=== PATIENT | female | born 1975 | race Asian ===

== ENCOUNTER 2017-07-05 14:57 | Emergency (ER) | payer BC ==
[2017-07-05] MEDS: NS 0.9% 1000 ML* 2,000 ML IV ONE (16:05)
[2017-07-05 16:20] LABS: ABS Basophils 0.1 10^3/ul (0-0.2); ABS Eosinophils 0.1 10^3/ul (0-0.6); ABS Monocytes 0.8 10^3/ul (0-0.8); ABS Neutrophils 6.3 10^3/ul (1.5-7.7); ABS Nucleated RBC 0 10^3/ul; Eosinophil % 1.2 % (0-6); Hematocrit 32 % (35-47); Lymphocyte % 21.1 % (25-47); Mean Corpuscular HGB Conc 35 g/dl (31-36); Mean Corpuscular Hemoglobin 29 pg (27-31); Mean Corpuscular Volume 84 fL (80-97); Mean Platelet Volume 8 um3 (7.4-10.4); Nucleated Red Blood Cells % 0; Platelet Count 267 10^3/ul (150-450); Red Blood Count 3.79 10^6/ul (4.0-5.4); Red Cell Distribution Width 13 % (10.5-15); White Blood Count 9.2 10^3/ul (3.5-10.8)
[2017-07-05 16:30] LABS: INR 0.93 (0.77-1.02)
[2017-07-05 16:37] LABS: EGFR Non-African American 92.7 (>60)
[2017-07-05] MEDS ORDERED: Morphine INJ* 4 MG/ML 1 ML SYRINGE (NEW SYRINGE VERSION) IV ONE (17:26)
[2017-07-05] MEDS ORDERED: Ondansetron INJ* 2 MG/ML VIAL IV ONE (17:36)
[2017-07-05] MEDS ORDERED: Ondansetron INJ* 2 MG/ML VIAL ONE (17:37)
--- NOTE | 2017-07-05 18:47 | RAD ---
INDICATION: Early with bleeding. Follow-up to July 03, 2017 examination COMPARISON: July 03, 2017 TECHNIQUE: Transvaginal scans were performed for the purposes of early evaluation. FINDINGS: There is no intrauterine gestational sac/ pole. There is echogenic material within the cervix likely representing blood. These findings must be correlated with the clinical presentation and with the serial beta hCG value. There is no adnexal mass. Left ovary is not visualized. Right ovary measures 4.0 x 3.3 x 3.5 cm.. There is a complex 3.2 cm right ovarian cyst. There is no significant free fluid. IMPRESSION: NO INTRAUTERINE GESTATION IS IDENTIFIED. BLOOD PRODUCTS ARE SEEN IN THE CERVIX.
--- NOTE | 2017-07-05 21:15 | RAD ---
INDICATION: Evacuation of blood products near cervix. Evaluate for additional retained products of conception COMPARISON: Ultrasound July 05, 2017 TECHNIQUE: Longitudinal and transverse transabdominal scans of the pelvis were obtained. FINDINGS: Limited ultrasonographic evaluation post evacuation of blood products shows a complex and thickened endometrial complex consistent with retained products and/or blood. The endometrium measures 2.3 cm. The larger echogenic collection in the lower uterine segment and cervix has been evacuated. There is now a small amount of fluid in the cervix IMPRESSION: There is blood and there may be retained products within the endometrial cavity which appears mildly thickened. Following evacuation, the larger echogenic collection in the lower uterine segment and cervix is no longer present.
[2017-07-05 21:41] LABS: Urine Appearance Cloudy; Urine Blood 3+ (Negative); Urine Ketones Negative (Negative); Urine Protein 1+(30 mg/dL) (Negative); Urine Specific Gravity 1.008 (1.010-1.030); Urine Urobilinogen Negative (Negative)
[2017-07-05 21:42] LABS: Urine Color Red
--- NOTE | 2017-07-05 23:06 | ED ---
Bubba Mae Natalie, scribed for Rosie Jerez MD on 07/05/17 at 1725 . - HPI Summary HPI Summary: The patient is a 41 y/o F AB1 presenting to the ED c/o bleeding and suprapubic abd pain worsening last night. She is 9 weeks by date of her LMP. She had transvaginal US on 07/03/17 at [facility] [place] ordered by Monroe WHIPPER, after the first office visit she had with them for this . The embryo looked like it had stopped growing after 6 weeks. Due to results, she was scheduled to have an appointment on 07/06/17. She started spotting after the US, and the pain started last night with heavier bleeding (about 2 pads per hour), worsening since then. She states that the clots are so big she has to go to the bathroom. She felt lightheaded and had severe cramping with back pain. The pain is rated 5/10. She has had one miscarriage before in which she had to have an emergency D&C. She also has one child now, who was a delivery.She has FHx of diabetes and HTN. - History of Current Complaint Chief Complaint: EDVaginalBleeding Stated Complaint: POSSIBLE MISCARRIAGE Time Seen by Provider: 07/05/17 16:31 Hx Obtained From: Patient, Family/Standards Analyst - and 4 yo son are with pt in the ED Chief Complaint: Concern for Embryonic Dem, Vaginal Bleeding Onset/Duration: Started Days Ago - starting 07/03/17, Atraumatic, Still Present Timing: Constant Severity: Moderate Current Severity: Severe Pain Intensity: 5 Location of Pain: Suprapubic Character: Cramping Aggravating Factors: Nothing Alleviating Factors: Nothing Associated Signs and Symptoms: Positive: Back Pain, Vaginal Bleeding or Discharge, Other: - lightheaded - Assessment Hx Now: Yes History of Ectopic : No Vaginal Bleeding Amount: Copious Hx Hysterectomy: No - Allergies/Home Medications Allergies/Adverse Reactions: Allergies Allergy/AdvReac Type Severity Reaction Status Date / Time No Known Allergies Allergy Verified 07/05/17 15:03 PMH/Surg Hx/FS Hx/Imm Hx Previously Healthy: Yes Opthamlomology History: Denies: Hx Legally Blind EENT History: Denies: Hx Deafness - Surgical History Surgery Procedure, Year, and Place: D and C after spontaneous Ab Infectious Disease History: No Infectious Disease History: Denies: Traveled Outside the [place] in Last 30 Days - Family History Known Family History: Positive: Hypertension, Diabetes - Social History Lives: With Family Alcohol Use: None Substance Use Type: Reports: None Smoking Status (MU): Never Smoked Tobacco Review of Systems Constitutional: Negative Cardiovascular: Negative Respiratory: Negative Positive: Abdominal Pain - suprapubic Positive: other - vaginal bleeding with blood clots. Negative: dysuria Positive: Other - back pain Skin: Negative Neurological: Other - lightheadedness Psychological: Normal All Other Systems Reviewed And Are Negative: Yes Physical Exam - Summary Physical Exam Summary: Appearance: Ill-appearing, moderate to severe pain distress, Well-nourished Skin: Warm, color reflects adequate perfusion Head: Normal Head/Face inspection Eyes: Conjunctiva clear ENT: Normal inspection Neck: Supple, no nodes, no JVD. Respiratory: Lungs clear, Normal breath sounds, no respiratory distress Cardio: RRR, No murmur, pulses normal, brisk capillary refill Abdomen: soft, Diffuse lower abd pain, no guarding, no rebound Pelvic exam: copious blood in the vagina, Dr. Loco completes pelvic exam with removal of large amount of clots and tissue Bowel sounds: present Musculoskeletal: Strength Intact/ ROM intact. No calf tenderness. No edema. Neuro: Alert, muscle tone normal, facial symmetry, speech normal, sensory/motor intact Psychological: Normal - Physical Exam Triage Information Reviewed: Yes Vital Signs Reviewed: Yes Diagnostics - Vital Signs Vital Signs Temp Pulse Resp BP Pulse Ox 07/05/17 17:04 73 9 100 07/05/17 16:46 83 18 103/61 100 07/05/17 16:30 81 16 96/60 100 07/05/17 16:16 100 07/05/17 16:03 104/64 07/05/17 16:00 86 17 100 07/05/17 15:53 78 97 07/05/17 15:51 102/59 07/05/17 15:00 98.5 F 103 20 121/65 100 - Laboratory Lab Results: Lab Results 07/05/17 07/05/17 07/05/17 Range/Units 16:02 16:02 16:02 WBC (3.5-10.8) 10^3/ul RBC (4.0-5.4) 10^6/ul Hgb (12.0-16.0) g/dl Hct (35-47) % MCV (80-97) fL MCH (27-31) pg MCHC (31-36) g/dl RDW (10.5-15) % Plt Count (150-450) 10^3/ul MPV (7.4-10.4) um3 Neut % (Auto) (38-83) % Lymph % (Auto) (25-47) % [place] % (Auto) (0-7) % Eos % (Auto) (0-6) % Baso % (Auto) (0-2) % Absolute Neuts (auto) (1.5-7.7) 10^3/ul Absolute Lymphs (auto) (1.0-4.8) 10^3/ul Absolute Monos (auto) (0-0.8) 10^3/ul Absolute Eos (auto) (0-0.6) 10^3/ul Absolute Basos (auto) (0-0.2) 10^3/ul Absolute Nucleated RBC 10^3/ul Nucleated RBC % INR (Anticoag Therapy) 0.93 (0.77-1.02) APTT 30.4 (26.0-36.3) seconds Sodium 133 (133-145) mmol/L Potassium 4.2 (3.5-5.0) mmol/L Chloride 104 (101-111) mmol/L Carbon Dioxide 26 (22-32) mmol/L Anion Gap 3 (2-11) mmol/L BUN 12 (6-24) mg/dL Creatinine 0.70 (0.51-0.95) mg/dL Est GFR ( Amer) 119.2 (>60) Est GFR (Non-Af Amer) 92.7 (>60) BUN/Creatinine Ratio 17.1 (8-20) Glucose 99 (70-100) mg/dL Lactic Acid (0.5-2.0) mmol/L Calcium 8.7 (8.6-10.3) mg/dL Total Bilirubin 0.20 (0.2-1.0) mg/dL AST 22 (13-39) U/L ALT 23 (7-52) U/L Alkaline Phosphatase 44 (34-104) U/L C-Reactive Protein 3.33 (< 5.00) mg/L Total Protein 6.1 L (6.4-8.9) g/dL Albumin 3.5 (3.2-5.2) g/dL Globulin 2.6 (2-4) g/dL Albumin/Globulin Ratio 1.3 (1-3) Beta HCG, Quant 4130.00 mIU/mL Blood Type AB Positive Antibody Screen Negative 07/05/17 07/05/17 Range/Units 16:02 16:02 WBC 9.2 (3.5-10.8) 10^3/ul RBC 3.79 L (4.0-5.4) 10^6/ul Hgb 11.0 L (12.0-16.0) g/dl Hct 32 L (35-47) % MCV 84 (80-97) fL MCH 29 (27-31) pg MCHC 35 (31-36) g/dl RDW 13 (10.5-15) % Plt Count 267 (150-450) 10^3/ul MPV 8 (7.4-10.4) um3 Neut % (Auto) 68.3 (38-83) % Lymph % (Auto) 21.1 L (25-47) % [place] % (Auto) 8.3 H (0-7) % Eos % (Auto) 1.2 (0-6) % Baso % (Auto) 1.1 (0-2) % Absolute Neuts (auto) 6.3 (1.5-7.7) 10^3/ul Absolute Lymphs (auto) 2.0 (1.0-4.8) 10^3/ul Absolute Monos (auto) 0.8 (0-0.8) 10^3/ul Absolute Eos (auto) 0.1 (0-0.6) 10^3/ul Absolute Basos (auto) 0.1 (0-0.2) 10^3/ul Absolute Nucleated RBC 0 10^3/ul Nucleated RBC % 0 INR (Anticoag Therapy) (0.77-1.02) APTT (26.0-36.3) seconds Sodium (133-145) mmol/L Potassium (3.5-5.0) mmol/L Chloride (101-111) mmol/L Carbon Dioxide (22-32) mmol/L Anion Gap (2-11) mmol/L BUN (6-24) mg/dL Creatinine (0.51-0.95) mg/dL Est GFR ( Amer) (>60) Est GFR (Non-Af Amer) (>60) BUN/Creatinine Ratio (8-20) Glucose (70-100) mg/dL Lactic Acid 1.0 (0.5-2.0) mmol/L Calcium (8.6-10.3) mg/dL Total Bilirubin (0.2-1.0) mg/dL AST (13-39) U/L ALT (7-52) U/L Alkaline Phosphatase (34-104) U/L C-Reactive Protein (< 5.00) mg/L Total Protein (6.4-8.9) g/dL Albumin (3.2-5.2) g/dL Globulin (2-4) g/dL Albumin/Globulin Ratio (1-3) Beta HCG, Quant mIU/mL Blood Type Antibody Screen Result Diagrams: 07/05/17 16:02 07/05/17 16:02 Lab Statement: Any lab studies that have been ordered have been reviewed, and results considered in the medical decision making process. - Ultrasound No standard instances Ultrasound Interpretation: Positive (See Comments) - No intrauterine gestation is identified. Blood products are seen in the cervix. ED physician has reviewed this report. Ultrasound Interpretation Completed By: Radiologist Re-Evaluation - Re-Evaluation First Eval Re-Evaluation Time: 17:34 Change: Unchanged Comment: I told the patient that Dr. Loco recommends to get a US. She is agreeable with this plan. Second Eval Re-Evaluation Time: 19:30 Change: Unchanged Comment: Dr. 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 Large amount of clot and tissue removed from vagina and cervix. Specimen sent to lab for genetic testing at pt and 's request. Third Eval Re-Evaluation Time: 21:00 Change: Improved Comment: Bleeding has stopped and pt's pain is controlled after pelvic exam with removal of clot and tissue. Awaiting repeat ultrasound for evaluation for possible retained products of conception. Course/Dx - Course Course Of Treatment: In the ER, the patient was given Morphine, Zofran 2x, and NS IV. Dr. Loco recommends that the patient get a US. Luke from ultrasound reports that the US shows the gestational sac is moved half way out of the cervix. I will contact Dr. Loco regarding further care. Dr. Loco is in the ED, and will consult on the patient for definitive care. Dr. Loco removed clot and tissue from pt's cervix and vagina with myself in attendance. Pt tolerated the procedure well. , Qasim, and pt consent to genetic testing of the products of conception. [facility] form for informed consent for genetic testing signed, and specimen sent to lab for processing. I spoke with Betty in the lab at 2050pm, who received the specimen and states it is properly labeled and paperwork is completed properly for the specimen to be processed for genetic testing. 2049 Lujair from ultrasound is in the department to repeat images by ultrasound to evaluate for retained products of conception. Care to Dr. Loco and Dr. Newell at change of shift 2100, 07/05/17, pending re- evaluation after second ultrasound. - Differential Diagnosis/HQI/PQRI: Incomplete , Missed , Spontaneous , Threatened , /Embryonic Demise, Vaginal Bleeding - Diagnoses Provider Diagnoses: Incomplete miscarriage - Provider Notifications Discussed Care Of Patient With: Giancarlo Loco Time Discussed With Above Provider: 17:20 - I spoke with Dr. Loco, WHIPPER, who recommends that the patient gets an ultrasound. Instructed by Provider To: MD Will See In ED Discharge - Discharge Plan Condition: Stable Disposition: OTHER Discharge Disposition Comment: care to Dr. Newell 07/05/17, 2100 with repeat US results pending,& final dispo Referrals: [facility] [place] [facility] [Outside] Giancarlo Loco MD [Medical Doctor] - 07/07/17 Additional Instructions: RETURN TO EMERGENCY DEPARTMENT FOR ANY NEW OR WORSENING SYMPTOMS The documentation as recorded by the Bubba hurley Natalie accurately reflects the service I personally performed and the decisions made by me, Rosie Jerez MD.
[2017-07-05 23:16] VITALS: BP 120/75
--- NOTE | 2017-07-05 23:16 | ED ---
Aly Mae Gabriel, scribed for Shukri Newell MD on 07/05/17 at 2246 . Progress - Progress Note Progress Note: This patient was signed out from Dr. Jerez, pending disposition. The patients condition is stable and will be discharged to home. We discussed patient care with Dr. Loco and they recommended discharging the pt. Dx retained product of conception Pt will follow up with Dr. Loco Course/Dx - Diagnoses Provider Diagnoses: Retained products of conception The documentation as recorded by the Aly hurley Gabriel accurately reflects the service I personally performed and the decisions made by Reece jean baptiste Abdul, MD.
== END 2017-07-05 23:13 ==
LOC: ED 14:57
DX: O03.4 Incomplete spontaneous abortion without complication (principal); E11.9 Type 2 diabetes mellitus without complications; I10 Essential (primary) hypertension
CPT/HCPCS: 36415; 76801; 76857; 80053; 81003; 81015; 83605; 84702; 85025; 85610; 85730; 86140; 86850; 86900; 86901; 87086; 88305; 96360; 96374; 96375; 99284; J2270; J2405

== ENCOUNTER 2018-03-22 15:28 | Emergency (ER) | payer BC, OTHER ==
[2018-03-22 15:43] VITALS: BP 147/73
--- NOTE | 2018-03-22 15:55 | UC ---
Respiratory Complaint HPI - HPI Summary HPI Summary: 42 yo female presents with productive cough, chest congestion, and fatigue for the last 4 days. She tells me that her 4yo son was diagnosed with PNA and she is concerned that she might have it as well. She has been taking Nyquill, dayuqill, tylenol, ibuprofen, and mucinex with no relief - but does say that her cough seems improved today. She denies fever, chills, sinus symptoms, sore throat, SOB, chest pain. - History of Current Complaint Chief Complaint: UCRespiratory Stated Complaint: COUGH, AND CHEST CONGESTION Time Seen by Provider: 03/22/18 15:55 Hx Obtained From: Patient Hx Last Menstrual Period: 03/15/18 Onset/Duration: Gradual Onset Severity Currently: None Pain Intensity: 0 Character: Cough: Productive - Allergies/Home Medications Allergies/Adverse Reactions: Allergies Allergy/AdvReac Type Severity Reaction Status Date / Time No Known Allergies Allergy Verified 03/22/18 15:44 Home Medications: Home Medications Acetaminophen TAB* [Tylenol TAB*] 325 mg PO Q4H PRN 03/22/18 [History Confirmed 03/22/18] Dm/Acetaminophen/Doxylamine [Vicks Nyquil Cold & Flu N] 1 liq PO Q24HR PRN 03/22 [History Confirmed 03/22/18] Ibuprofen TAB* [Advil TAB*] 200 mg PO Q6H PRN 03/22/18 [History Confirmed ] guaiFENesin ER TAB [Mucinex*] 600 mg PO BID 03/22/18 [History Confirmed 03/22/18 ] PMH/Surg Hx/FS Hx/Imm Hx - Additional Past Medical History Additional PMH: None - Surgical History Surgical History: Yes Surgery Procedure, Year, and Place: C-secx1,. D and C after spontaneous Ab - Family History Known Family History: Positive: Hypertension, Diabetes - Social History Occupation: Employed Full-time Lives: With Family Alcohol Use: None Substance Use Type: None Smoking Status (MU): Never Smoked Tobacco Review of Systems All Other Systems Reviewed And Are Negative: Yes Constitutional: Positive: Fatigue Skin: Positive: Negative Eyes: Positive: Negative ENT: Positive: Negative Respiratory: Positive: Cough Cardiovascular: Positive: Negative Gastrointestinal: Positive: Negative Neurovascular: Positive: Negative Neurological: Positive: Negative Psychological: Positive: Negative Physical Exam - Summary Physical Exam Summary: GENERAL: NAD. WDWN. No pain distress. SKIN: No rashes, sores, lesions, or open wounds. HEENT: Head: AT/NC Eyes: Conjunctiva clear without inflammation or discharge. Ears: Hearing grossly normal. TMs intact, no bulging, erythema, or edema. Nose: Nasal mucosa pink and moist. NTTP maxillary and frontal sinus. Throat: Posterior oropharynx without exudates, erythema, or tonsillar enlargement. Uvula midline. NECK: Supple. Nontender. No lymphadenopathy. CHEST: Mild wheezing RLL. No r/r. No accessory muscle use. Breathing comfortably and in no distress. CV: RRR. Without m/r/g. Pulses intact. Cap refill <2seconds NEURO: Alert. PSYCH: Age appropriate behavior. Triage Information Reviewed: Yes Vital Signs: Initial Vital Signs Temp 97.8 F 03/22/18 15:38 Pulse 82 03/22/18 15:38 Resp 16 03/22/18 15:38 BP 147/73 03/22/18 15:38 Pulse Ox 100 03/22/18 15:38 Vital Signs Reviewed: Yes Diagnostic Evaluation - Laboratory O2 Sat by Pulse Oximetry: 100 Respiratory Course/Dx - Course Course Of Treatment: She was given a duoneb nebulizer treatment in the clinic with no subjective change in symptoms. Objectively, however, she had decreased wheezing in the RLL s/p treatment. Discussed viral vs bacterial, but pt prefers to be on an anbx at this time as her son has PNA. Will rx for zpak, but advised to continue OTC treatments for another 3-4 days to see if her symptoms improve. - Differential Dx/Diagnosis Provider Diagnoses: Bronchitis Discharge - Sign-Out/Discharge Documenting (check all that apply): Patient Departure All imaging exams completed and their final reports reviewed: No Studies - Discharge Plan Condition: Stable Disposition: HOME Prescriptions: Azithromycin TAB* [Zithromax TAB (Z-GRANT) 250 mg #6 tabs] 2 tab PO .TODAY, THEN 1 DAILY #1 grant Patient Education Materials: Acute Bronchitis (ED) Referrals: No Primary Care Phys,NOPCP [Primary Care Provider] - Additional Instructions: If you develop a fever, shortness of breath, chest pain, new or worsening symptoms - please call your PCP or go to the ED. Your blood pressure was high at todays visit. Please see your primary provider within 4 weeks for recheck and re-evaluation. - Billing Disposition and Condition Condition: STABLE Disposition: Home
[2018-03-22] MEDS ORDERED: Albuterol/Ipratropium NEB.SOL* Albuterol 2.5 MG/Ipratropium 0.5 MG 3 ML INH ONE (16:01)
== END 2018-03-22 16:30 | disposition home or self-care (01) ==
LOC: UCEAST 15:28
DX: J40 Bronchitis, not specified as acute or chronic (principal)
CPT/HCPCS: 99212; A9270-GY; G0463

== ENCOUNTER 2019-01-05 10:58 | Emergency (ER) | payer BC, OTHER ==
[2019-01-05 11:08] VITALS: BP 131/80
--- NOTE | 2019-01-05 11:42 | UC ---
Ear Complaint HPI - HPI Summary HPI Summary: 43-year-old female presents with 3 day history of right ear pain. States pain has been worsening over the past 2 days. Reports she has been scratching the inside of her ear and is concerned that she may have caused an infection. Has had a similar incident in the past involving her left ear that was treated with antibiotic eardrops. Denies fever, chills, tinnitus, vertigo, ear drainage, loss of hearing, or URI symptoms. - History of Current Complaint Chief Complaint: UCEar Stated Complaint: EAR ACHE Time Seen by Provider: 01/05/19 11:29 Hx Obtained From: Patient Hx Last Menstrual Period: 12/02/18 Pain Intensity: 3 - Allergies/Home Medications Allergies/Adverse Reactions: Allergies Allergy/AdvReac Type Severity Reaction Status Date / Time No Known Allergies Allergy Verified 01/05/19 11:08 Home Medications: Home Medications Cholecalciferol TAB* [Vitamin D TAB*] 1,000 unit PO DAILY 01/05/19 [History Confirmed 01/05/19] PMH/Surg Hx/FS Hx/Imm Hx Previously Healthy: Yes - Denies significant PMH - Surgical History Surgical History: Yes Surgery Procedure, Year, and Place: C-secx1,. D and C after spontaneous Ab - Family History Known Family History: Positive: Hypertension, Diabetes - Social History Occupation: Employed Full-time Lives: With Family Alcohol Use: Occasionally Substance Use Type: None Smoking Status (MU): Never Smoked Tobacco Review of Systems All Other Systems Reviewed And Are Negative: Yes Constitutional: Negative: Fever, Chills Eyes: Negative: Drainage, Eye Redness ENT: Positive: Ear Ache. Negative: Sore Throat, Nasal Discharge, Sinus Congestion, Sinus Pain/Tenderness Respiratory: Negative: Other Cardiovascular: Positive: Negative Gastrointestinal: Positive: Negative Genitourinary: Positive: Negative Musculoskeletal: Positive: Negative Neurological: Positive: Negative Is Patient Immunocompromised?: No Physical Exam - Summary Physical Exam Summary: GENERAL APPEARANCE: Well developed, well nourished, alert and cooperative, and appears to be in no acute distress. EYES: Conjunctiva clear. No drainage. PERRL, EOM intact. Vision is grossly intact. EARS: Left external auditory canal and tympanic membranes clear. Right external auditory canal erythematous an mildly edematous. Right TM opaque with good cone of light. Hearing grossly intact. NOSE: No nasal discharge. THROAT: Pharynx normal. No tonsilar inflammation, swelling, exudate, or lesions. Uvula midline. Oral cavity normal. Teeth and gingiva in good general condition. NECK: Neck supple, non-tender without lymphadenopathy. CARDIAC: Normal S1 and S2. No S3, S4 or murmurs. Rhythm is regular. There is no peripheral edema, cyanosis or pallor. Extremities are warm and well perfused. Capillary refill is less than 2 seconds. Peripheral pulses intact. LUNGS: Clear to auscultation without rales, rhonchi, wheezing or diminished breath sounds. ABDOMEN: Positive bowel sounds. Soft, nondistended, nontender. No guarding or rebound. No masses or hepatosplenomegally. MUSKULOSKELETAL: ROM intact to all extremities. No joint erythema or tenderness. Normal muscular development. Normal gait. SKIN: Skin normal color, texture and turgor. Triage Information Reviewed: Yes Vital Signs: Initial Vital Signs Temp 98.1 F 01/05/19 11:04 Pulse 85 01/05/19 11:04 Resp 18 01/05/19 11:04 BP 131/80 01/05/19 11:04 Pulse Ox 100 01/05/19 11:04 Vital Signs Reviewed: Yes Ear Complaint Course/Dx - Course Course Of Treatment: 43-year-old female presents with 3 day history of right ear pain. States pain has been worsening over the past 2 days. Reports she has been scratching the inside of her ear and is concerned that she may have caused an infection. Has had a similar incident in the past involving her left ear that was treated with antibiotic eardrops. Denies fever, chills, tinnitus, vertigo, ear drainage, loss of hearing, or URI symptoms. Afebrile. Mildly hypertensive otherwise vital signs stable. Patient's exam revealed a right external auditory canal that was erythematous an mildly edematous. Right TM opaque with good cone of light. Hearing grossly intact. Remainder of exam was unremarkable. Will treat patient for a right otitis externa with ofloxacin otic drops 10 drops into the right ear once daily for 7 days. She is to use [id number] analgesics as needed for pain. She should follow up with her primary care provider in 3-5 days if symptoms are not improving. Anticipatory guidance and warning symptoms were reviewed with the patient. Verbalizes understanding and agrees with plan of care. - Differential Dx/Diagnosis Differential Diagnosis/HQI/PQRI: Cerumen Impaction, Foreign Body, Otitis Externa , Otitis Media Provider Diagnosis: Right otitis externa Discharge ED - Sign-Out/Discharge Documenting (check all that apply): Patient Departure All imaging exams completed and their final reports reviewed: No Studies - Discharge Plan Condition: Stable Disposition: HOME Prescriptions: Ofloxacin 0.3% (Ear Drop)* [Floxin 0.3% OTIC.JORDY (Ear Drop)] 10 drop RIGHT EAR DAILY #1 btl Patient Education Materials: Otitis Externa (ED) Referrals: No Primary Care Phys,NOPCP [Primary Care Provider] - Additional Instructions: You have an infection of the ear canal of the right ear called otitis externa. We will start you on an antibiotic ear drop to treat the infection. Start ofloxacin otic drops. Instill 10 drops into the right ear once daily for 7 days. Take acetaminophen (Tyenol) or ibuprofen (Advil, Motrin) according to directions as needed for pain. Follow up with your primary care provider in 3-5 days if symptoms are not improving. Seek immediate medical attention if you develop fever greater than 100.5 F, have loss of hearing, become dizzy, have drainage or blood from the ear, or any worsening of symptoms. - Billing Disposition and Condition Condition: STABLE Disposition: Home
== END 2019-01-05 11:55 | disposition home or self-care (01) ==
LOC: UCEAST 10:58
DX: H60.91 Unspecified otitis externa, right ear (principal)
CPT/HCPCS: 99212; G0463